=== PATIENT | female | born 2000 | race Caucasian/White ===

== ENCOUNTER 2019-04-06 14:26 | Emergency (ER) | payer MEDICAID ==
[~2019-04-06] VITALS: Ht 162.6 cm; Wt 78.5 kg
[2019-04-06 15:00] VITALS: BP 110/70
--- NOTE | 2019-04-06 15:03 | NUR ---
URINE CUP HANDED TO PT FOR SAMPLE--WILL RETURN TO ER LOBBY TO CONTINUE TO WAIT FOR AVAILABLE ROOM FOR MD BILL
--- NOTE | 2019-04-06 15:24 | NUR ---
PT TAKEN TO BED 4.
--- NOTE | 2019-04-06 16:46 | NUR ---
PT BIB SELF WITH [employer] "FEW MONTHS"; DENIES CHANGES IN DIET OR USE OF SUPPLEMENTS.STATES GETS TO RESTROOM SOON SHE EATS . DENIES ANY NAUSEA AT THIS TIME. PT STATES NO EPISODE OF DIRRHEA AT THIS TIME. INFOREMD PT THAT NEEDS STOOL SAMPLE, UNABLE TO GO RESTROOM, NO DIARRHEA AT THIS TIME. INFORMED PT TO LET KNOW IF SHE USES RESTROOM. VERBALISED UNDERSTANDING. WILL CONTINUE TO MONITOR PT. HX--DENIES RX---NONE
[2019-04-06 16:59] LABS: BASOPHILS % (AUTO) 0.2 % (0.0-2.0); EOSINOPHILS # (AUTO) 0.1 K/uL (0-0.4); HEMATOCRIT 43.4 % (36-48); HEMOGLOBIN 14.7 g/dL (12.0-16.0); LYMPHOCYTES % (AUTO) 20.1 % (20.5-51.1); MEAN CORPUSCULAR HEMOGLOBIN 30 pg (27-31); MEAN CORPUSCULAR HGB CONC 34 g/dL (33-37); MEAN CORPUSCULAR VOLUME 88.2 fL (80-94); MONOCYTES # (AUTO) 0.4 K/uL (0.8-1.0); MONOCYTES % (AUTO) 4.2 % (1.7-9.3); NEUTROPHILS # (AUTO) 7.6 K/uL (1.8-7.7); NEUTROPHILS % (AUTO) 74.5 % (42.2-75.2); PLATELET COUNT (AUTO) 292 K/uL (140-450); RED BLOOD CELL COUNT(AUTO) 4.92 MIL/uL (4.20-5.40); RED CELL DISTRIBUTION WIDTH 13.3 % (11.6-13.7); WHITE BLOOD COUNT (AUTO) 10.2 K/uL (4.5-11.0)
[2019-04-06 17:44] LABS: ANION GAP 13.9 (8-16); CARBON DIOXIDE 27.7 mmol/L (21-32); CREATININE 0.7 mg/dL (0.6-1.3); POTASSIUM 3.6 mmol/L (3.5-5.1); TOTAL BILIRUBIN 0.2 mg/dL (0.0-1.0)
--- NOTE | 2019-04-06 17:46 | NUR ---
CHECKED ON PT. NOT ABLE TO GO RESTROOM. NO DIARRHEA AT THIS TIME.
[2019-04-06 18:03] LABS: ALBUMIN 3.8 g/dL (3.4-5.0)
[2019-04-06 18:04] VITALS: BP 110/70
--- NOTE | 2019-04-06 18:05 | NUR ---
Patient discharged with v/s stable. Written and verbal after care instructions given and explained. Patient verbalized understanding. Ambulatory with steady gait. All questions addressed prior to discharge. Advised to follow up with PMD.
== END 2019-04-06 18:05 | disposition home or self-care (01) ==
LOC: MED 14:26
DX: R19.7 Diarrhea, unspecified (principal); J45.909 Unspecified asthma, uncomplicated; Z88.0 Allergy status to penicillin
CPT/HCPCS: 36415; 80053; 81002; 81025; 83690; 85025; 99283